=== PATIENT | male | born 1985 | race Caucasian/White ===

== ENCOUNTER 2023-06-09 10:11 | Outpatient (AMB) | payer OTHER, SELFPAY ==
--- NOTE | 2023-06-09 10:12 | A.OFFVIS_ITS ---
Intake Intake Visit Reasons: hemorrhoids Coding
--- NOTE | 2023-06-09 10:12 | MHC.OFFVIS ---
Intake Intake Visit Reasons: hemorrhoids Coding
--- NOTE | 2023-06-09 10:35 | A.OFFVIS_ITS ---
Intake Vital Signs 06/09/23 10:40 Weight 243 lb BP 137/72 Blood Pressure Location Rt brachial Position Sitting Pulse 59 Intake Visit Reasons: hemorrhoids Intake Note: This patient presents for an assessment for hemorrhoids. Patient c/o; reports rectal bleeding everyday, denies pain, reports straining with bowel movements, denies constipation. 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 He describes seeing blood per rectum with his bowel movements practically every day. He describes this as bright blood. He denies any pain in the anus. He denies any problems with constipation. He has noticed this for over a month now. He does admit to eating weight is every day. He says he does not know if he has any lump in the anus as he does not palpate the area. [facility] Medical History (Updated 06/09/23 @ 10:56 by Mark Burleson MD) Bleeding hemorrhoids Surgical History (Updated 06/09/23 @ 10:44 by TIMA Ocasio) History of nasal surgery Family History (Updated 06/09/23 @ 10:44 by TIMA Ocasio) Maternal Grandmother Colon cancer Review of Systems Const Denies chills and Denies fever(s) Card Denies chest pain, Denies dyspnea and Denies dyspnea on exertion Resp Denies cough, Denies dyspnea and Denies dyspnea on exertion GI Reports hematochezia and Denies change in bowel habits Denies hematuria and Denies difficulty urinating Musc Denies back pain and Denies limited range of motion Neuro Denies focal weakness and Denies convulsions Psych Denies depression and Denies mood swings Physical Exam Vital Signs: Last Vital Signs Pulse 59 06/09/23 10:40 BP 137/72 06/09/23 10:40 Const General: comfortable and no acute distress Orientation/consciousness: patient oriented x3 Neck Neck: Yes no lymphadenopathy Resp Auscultation: clear to auscultation bilaterally Cardio Rhythm: regular rhythm GI Other: Moderate size external hemorrhoidal column on the left Palpation (GI): Soft to palpation, nontender and no guarding Neuro General: patient oriented x3 Office Procedures Anoscopy He was in allyson-knife position. The anoscope was gently inserted. A full examination of the entire anal canal was done. He did have a large hemorrhoidal column the left side which is a mix of internal external. This seemed to bleed a little bit. There were no other lesions. No fissure or ulceration. There was no induration on digital exam. [id number] Assessment & Plan Assessment & Plan (1) Bleeding hemorrhoids: Code(s): K64.9 - Unspecified hemorrhoids Plan: He has this moderate-sized hemorrhoidal column on the left side, internal and external. He does state that he has bright blood per rectum movements pr actically every day. He is on wiping as well as on the toilet bowl. The stool itself is brown in color . He wants to proceed with hemorrhoidectomy. He lifts weights so he does not expect this hemorrhoid to get better. I explained the technique of exam under anesthesia and hemorrhoidectomy. I reviewed the risks including but not limited to bleeding and infections, as well as the benefits and alternatives. He has given consent. I also discussed with him what to expect with regards to care postoperatively. Coding Level of Care Code New Pt Level 3 (66853) Diagnoses Bleeding hemorrhoids K64.9 CPT Codes Details - CPT: 67375-[id number] ([id number])
[2023-06-09 10:40] VITALS: BP 137/72; PULSE 59
== END 2023-06-09 11:15 | disposition home or self-care (01) ==
PROVIDERS: Visit Provider Surgery
DX: K64.9 Unspecified hemorrhoids (principal)
CPT/HCPCS: 46600; 99203

== ENCOUNTER → 2023-06-09 10:11 | Outpatient (BNVA) | payer OTHER, SELFPAY | PROVIDERS: Visit Provider Surgery | DX: K64.9 Unspecified hemorrhoids (principal); Z80.0 Family history of malignant neoplasm of digestive organs | CPT/HCPCS: 46600 ==

== ENCOUNTER 2023-06-29 07:20 | Day surgery (SDC) | payer OTHER, SELFPAY ==
--- NOTE | 2023-06-28 09:38 | HO.ANESPROP2 ---
Documented by User: Chantell Ortiz NP 06/28/23 09:38 HPI - Anesthesia Eval Consult details Narrative: 38yo M for Hemorrhoidectomy [facility] Active Problems Active Problems: All Active Problems (Updated 06/25/23 @ 09:36 by Darcy Maldonado RN) Bleeding hemorrhoids (Acute) Past Medical History Medical History Hyperlipidemia Cervicalgia GERD (gastroesophageal reflux disease) Anxiety ADD (attention deficit disorder) PTSD (post-traumatic stress disorder) Bleeding hemorrhoids Family History Family History Maternal Grandmother Colon cancer Surgical History Surgical History H/O vasectomy History of nasal surgery Social History Social History Patient Tobacco Use Status: Never used Tobacco Use of substances other than those prescribed or required for medical reasons: No Are you DNR?: No Advance Directives: No Advance Directives Information Provided: Yes Meds Allergies Allergy/AdvReac Type Severity Reaction Status Date / Time No Known Allergies Allergy Verified 06/29/23 07:53 Home Medications Medication Instructions Recorded Confirmed Last Taken Type testosterone cypionate 06/29/23 06/29/23 Unknown History Exam Exam Date and Time: June 28, [id number] Height,Weight and Vital Signs: Weight 110.223 kg Assessment and Plan Assessment Anesthesia Assessment: Chart Reviewed Documented by User: Celine Kern MD 06/29/23 09:18 [facility] Active Problems Active Problems: All Active Problems (Updated 06/25/23 @ 09:36 by Darcy Maldonado RN) Bleeding hemorrhoids (Acute) ? H/o smoking- patient denies ? H/o cervicalgia - patient denies H/o GERD- No meds Snores but no documented ADELFO Sore throat for days after nasal surgery 2011 Past Medical History Medical History Hyperlipidemia Cervicalgia GERD (gastroesophageal reflux disease) Anxiety ADD (attention deficit disorder) PTSD (post-traumatic stress disorder) Bleeding hemorrhoids Family History Family History Maternal Grandmother Colon cancer Family history of problems with anesthesia: No Surgical History Surgical History H/O vasectomy History of nasal surgery History of Problems with Anesthesia: Yes (Sore throat for days following intubation for nasal surgery 2011) Social History Social History Patient Tobacco Use Status: Never used Tobacco Use of substances other than those prescribed or required for medical reasons: No Are you DNR?: No Advance Directives: No Advance Directives Information Provided: Yes Meds Allergies Allergy/AdvReac Type Severity Reaction Status Date / Time No Known Allergies Allergy Verified 06/29/23 07:53 Home Medications Medication Instructions Recorded Confirmed Last Taken Type testosterone cypionate 06/29/23 06/29/23 Unknown History Exam Height,Weight and Vital Signs: Height 6 ft 2 in Weight 111.13 kg Vital Signs Temp Pulse Resp BP Pulse Ox O2 Del Method 06/29/23 07:54 97.9 F 57 16 127/62 97 Room Air Pertinent Lab Results Pertinent Lab Results: 05/07/23 Hgb 16.6 Hct 50.4 WBC 5.51 Plt 267 Na 137 K 4.9 CO2 28 Airway Mallampati Class: II TM Dist: >3cm Neck ROM: Full Loose/Missing/Broken Teeth: No (Denies broken, loose, missing teeth) Heart: RRR Lungs: CTAB Assessment and Plan Assessment Anesthesia Assessment: Anesthesia Plan Discussed Final Anesthetic Review Family History of Problems with Anesthesia: No History of Problems with Anesthesia: Yes (Sore throat for days following intubation for nasal surgery 2011) NPO: Yes ASA Class: II Final Preanesthetic Review: No Changes in Pt Med Stat, Meds/Allgs Chart Reviewed, Consent Obtained/Reviewed and Anes Risks/Benef Reviewed Patient Risk: Low Procedure Risk: Low Assessment/Block/Sedation in SS: Assess/Block/Sedation-SS Anesthetic Plan Anesthetic Plan: GA Disposition: Standard PACU
[2023-06-29] VITALS (7 sets, daily range): BP systolic 106–137; BP diastolic 40–73; PULSE 53–68; RESP 16–18; TEMP 36.4–36.6; O2SAT 93–98; BMI 31.5
[2023-06-29] MEDS: Lactated Ringers 1,000 ML 100 ML IVCONT (08:14)
--- NOTE | 2023-06-29 09:01 | MHC.SHP ---
Pre-Procedural Eval Section A Date of Service: 06/29/23 The patient is an INPATIENT: No Changes since office visit: No Cold of Flu in the past 2 weeks, No New Medical Problems, No Changes in Medication and No Patient answered all questions The History & Physical has been completed within 30 days and I have reviewed it.: Yes Section B Chief Complaint: Unspecified hemorrhoids Allergies: Allergies Allergy/AdvReac Type Severity Reaction Status Date / Time No Known Allergies Allergy Verified 06/29/23 07:53 Plan I have reviewed the history and physical and performed a pertinent physical examination on my patient. No changes have occurred unless specified. Time Spent With Patient Time: Total time managing care of this patient today ____ minutes.
--- NOTE | 2023-06-29 10:17 | W.PM.OPN ---
Operative Note Operative Note Date of Service: 06/29/23 Narrative: Preop diagnosis: Bleeding hemorrhoids Postop diagnosis: Bleeding hemorrhoids, internal external Procedure: Exam under anesthesia, had ectomy x2 columns Surgeon: Mark Burleson MD The patient is a 38-year-old male who has had problems with bleeding per rectum. He was noted to have bulky internal and external hemorrhoids. He wanted to proceed with hemorrhoidectomy. He understood the technique of the procedure as well as the risks, benefits, and alternatives were He was brought to the operating room. Was placed in prone allyson-knife position under general anesthesia via endotracheal tube. The buttocks were retracted with wide tape laterally. The perianal area was prepped and draped in the usual sterile fashion. A surgical time-out was done. The patient received Cefotan 2 g IV preoperatively Examination of the anal orifice revealed a large external hemorrhoidal column on the left and a smaller 1 on the right. I inserted the Delia Duque retractor and examined the anal canal circumferentially. Again this will columns were seen and were noted to be a mix of both internal external . There were no other lesions seen. I made a figure of 8 stitch at the pedicle of the hemorrhoidal column the left past the dentate line. Was done using chromic 3-0 stitch. I made an incision around this hemorrhoidal column to the perianal skin using blade 15. I excised this hemorrhoidal column above the plane of sphincters along this incision using Metzenbaum scissors. I closed this incision with a running chromic 3-0 stitch . The same procedure was duplicated that the hemorrhoid column on the right. Again I made a [id number] stitch at the pedicle and made an incision around this column to the perianal skin. I excised this hemorrhoidal column along this incision above the plane of sphincters using Metzenbaum scissors. I closed this incision with a running chromic 3-0 stitch Hemostasis was confirmed. I infiltrated the perianal area with Marcaine 0.5% for postop analgesia. The procedure was completed . The patient tolerated procedure well. There were no immediate complications. Initial and final counts of sponges and instruments were correct. Estimated blood loss about 5 cc. The patient was extubated without difficulty and transferred to the recovery room with stable vital signs.
== END 2023-06-29 11:55 | disposition home or self-care (01) ==
PROVIDERS: Visit Provider Surgery
PROC: (CPT 46260; principal; 2023-06-29 09:30)
DX: K64.8 Other hemorrhoids (principal); K64.4 Residual hemorrhoidal skin tags; K21.9 Gastro-esophageal reflux disease without esophagitis; E78.5 Hyperlipidemia, unspecified; Z98.890 Other specified postprocedural states
CPT/HCPCS: 46260; 88304; J0131; J0330; J1100; J1885; J2405; J3010

== ENCOUNTER → 2023-06-29 07:20 | Outpatient (BNV) | payer OTHER, SELFPAY | PROVIDERS: Visit Provider Surgery | DX: K64.8 Other hemorrhoids (principal) | CPT/HCPCS: 46260 ==

== ENCOUNTER 2023-07-12 08:50 | Outpatient (AMB) | payer OTHER, SELFPAY ==
--- NOTE | 2023-07-12 09:03 | A.OFFVIS_ITS ---
Intake Intake Visit Reasons: S/P hemorrhoidectomy Intake Note: This patient presents for a post-op assessment status post hemorrhoidectomy. Patient c/o; reports will like to discuss concerns with provider. Senior Agricultural Assistant Required: No Accompanied by: Self / Same As Patient Allergies No Known Allergies Allergy (Verified 07/12/23 09:07) HPI S/P hemorrhoidectomy HPI Details He underwent hemorrhoidectomy for symptomatic hemorrhoids last 06/29/2023. He tolerated procedure well. He says that he did have significant pain for the 1st few days but he feels much better now. [facility] Medical History Hyperlipidemia Cervicalgia GERD (gastroesophageal reflux disease) Anxiety ADD (attention deficit disorder) PTSD (post-traumatic stress disorder) Bleeding hemorrhoids Surgical History History of hemorrhoidectomy (~06/29/23) H/O vasectomy History of nasal surgery Family History Maternal Grandmother Colon cancer Social History Patient Tobacco Use Status: Never used Tobacco Review of Systems Const Denies chills and Denies fever(s) Card Denies chest pain, Denies dyspnea and Denies dyspnea on exertion Resp Denies cough, Denies dyspnea and Denies dyspnea on exertion GI Denies hematochezia and Denies change in bowel habits Denies hematuria and Denies difficulty urinating Musc Denies back pain and Denies limited range of motion Neuro Denies focal weakness and Denies convulsions Psych Denies depression and Denies mood swings Physical Exam Const General: comfortable and no acute distress Resp Effort & Inspection: normal respiratory effort GI Other: Rectal exam shows the hemorrhoidectomy sites to be healing well, and no evidence of infection Assessment & Plan Assessment & Plan (1) Bleeding hemorrhoids: Code(s): K64.9 - Unspecified hemorrhoids Plan: Status post hemorrhoidectomy. He is doing very well postoperatively. His symptoms improved significantly and he is happy with the outcome. He can follow up on a p.r.n. basis. He was advised to avoid straining and constipation. Coding Level of Care Code Global (38643) Diagnoses Bleeding hemorrhoids K64.9
== END 2023-07-12 09:46 | disposition home or self-care (01) ==
PROVIDERS: Visit Provider Surgery
DX: K64.9 Unspecified hemorrhoids (principal)
CPT/HCPCS: 99024

== ENCOUNTER → 2023-07-12 08:50 | Outpatient (BNVA) | payer OTHER, SELFPAY | PROVIDERS: Visit Provider Surgery ==

== ENCOUNTER 2023-10-14 09:32 | Outpatient (AMB) | payer OTHER, SELFPAY ==
--- NOTE | 2023-10-14 09:48 | MHC.OFFVIS ---
Intake Vital Signs 10/14/23 09:53 Weight 236 lb BP 131/61 Blood Pressure Location Rt brachial Position Sitting Pulse 87 Intake Visit Reasons: Bleeding hemorrhoids Intake Note: This patient presents for an assessment for rectal bleeding. Patient c/o; reports rectal bleeding. Gas Producer Required: No Accompanied by: Self / Same As Patient Allergies No Known Allergies Allergy (Verified 10/14/23 09:54) Medication List - Last Reconciled 10/14/23 by Mark Burleson MD docusate sodium (Colace) 100 mg PO BID ibuprofen 600 mg PO Q6H PRN oxycodone-acetaminophen 5-325 mg (Percocet) 1 tab PO Q4-6H PRN [testosterone cypionate ] HPI Bleeding hemorrhoids HPI Details 38-year-old male here for passage of bright blood per rectum. He had undergone hemorrhoidectomy for bleeding hemorrhoids last June,. I would removed 2 hemorrhoidal columns at that time He says he continues to have some passage of bright blood per rectum. Occasionally this becomes heavy. He denies any pain. COUNTS INCLUDE 234 BEDS AT THE [facility] Medical History (Updated 10/14/23 @ 10:09 by Mark Burleson MD) Rectal bleeding Hyperlipidemia Cervicalgia GERD (gastroesophageal reflux disease) Anxiety ADD (attention deficit disorder) PTSD (post-traumatic stress disorder) Bleeding hemorrhoids Surgical History History of hemorrhoidectomy (~06/29/23) H/O vasectomy History of nasal surgery Family History Maternal Grandmother Colon cancer Social History Patient Tobacco Use Status: Never used Tobacco Review of Systems Const Denies chills and Denies fever(s) Card Denies chest pain, Denies dyspnea and Denies dyspnea on exertion Resp Denies cough, Denies dyspnea and Denies dyspnea on exertion GI Reports hematochezia and Denies change in bowel habits Denies hematuria and Denies difficulty urinating Musc Denies back pain and Denies limited range of motion Neuro Denies focal weakness and Denies convulsions Psych Denies depression and Denies mood swings Physical Exam Vital Signs: Last Vital Signs Pulse 87 10/14/23 09:53 BP 131/61 10/14/23 09:53 Const General: comfortable and no acute distress Orientation/consciousness: patient oriented x3 Neck Neck: Yes no lymphadenopathy Resp Auscultation: clear to auscultation bilaterally Cardio Rhythm: regular rhythm GI Other: Rectal exam shows external hemorrhoids on both the left and right side Palpation (GI): Soft to palpation, nontender and no guarding Neuro General: patient oriented x3 Office Procedures Anoscopy He was in allyson-knife position. The anoscope was gently inserted. A full examination of the anal canal was done. Did have residual mixed internal external hemorrhoidal columns on both the left and right side. There was no bleeding. There were no other lesion lesions, or fissure or induration.. [id number] Assessment & Plan Assessment & Plan (1) Rectal bleeding: Code(s): K62.5 - Hemorrhage of anus and rectum Plan: He continues to have passage of bright blood per rectum. He already had hemorrhoidectomy last year although does have significant residual hemorrhoidal columns. His bleeding is likely from an outlet source with this residual hemorrhoids. However, I am going to do a colonoscopy to rule out any other proximal source I explained to the technique of colonoscopy to him. I reviewed the risks including but not limited to bleeding and perforation, as well as the benefits and alternatives. He understands and wants to proceed. Coding Level of Care Code Est Pt Level 3 (32235) Diagnoses Rectal bleeding K62.5 CPT Codes Details - CPT: [id number] ([id number])
[2023-10-14 09:53] VITALS: BP 131/61; PULSE 87
== END 2023-10-14 10:12 | disposition home or self-care (01) ==
PROVIDERS: Visit Provider Surgery
DX: K62.5 Hemorrhage of anus and rectum (principal); K64.8 Other hemorrhoids
CPT/HCPCS: 46600; 99213

== ENCOUNTER → 2023-10-14 09:32 | Outpatient (BNVA) | payer OTHER, SELFPAY | PROVIDERS: Visit Provider Surgery | DX: K62.5 Hemorrhage of anus and rectum (principal); K64.4 Residual hemorrhoidal skin tags; K64.8 Other hemorrhoids | CPT/HCPCS: 46600; 99212 ==

== ENCOUNTER 2023-10-29 07:28 | Day surgery (SDC) | payer OTHER, SELFPAY ==
[2023-10-26 16:17] VITALS: BMI 30.3
--- NOTE | 2023-10-28 10:49 | HO.ANESPROP2 ---
Documented by User: Chantell Ortiz NP 10/28/23 10:49 HPI - Anesthesia Eval Consult details Narrative: 38yo M for Colonoscopy with Possible Polypectomy PMF Active Problems Active Problems: All Active Problems (Updated 10/14/23 @ 10:09 by Mark Burleson MD) Rectal bleeding (Acute) Bleeding hemorrhoids (Acute) Past Medical History Medical History (Updated 10/14/23 @ 10:09 by Mark Burleson MD) Rectal bleeding Hyperlipidemia Cervicalgia GERD (gastroesophageal reflux disease) Anxiety ADD (attention deficit disorder) PTSD (post-traumatic stress disorder) Bleeding hemorrhoids Family History Family History Maternal Grandmother Colon cancer Family history of problems with anesthesia: No Surgical History Surgical History History of hemorrhoidectomy (~06/29/23) H/O vasectomy History of nasal surgery History of Problems with Anesthesia: Yes (Sore throat for days following intubation for nasal surgery 2011) Social History Social History Patient Tobacco Use Status: Never used Tobacco Use of substances other than those prescribed or required for medical reasons: No Are you DNR?: No Advance Directives: No Advance Directives Information Provided: Yes Meds Allergies Allergy/AdvReac Type Severity Reaction Status Date / Time No Known Allergies Allergy Verified 10/14/23 09:54 Home Medications Medication Instructions Recorded Confirmed Last Taken Type testosterone cypionate 06/29/23 10/14/23 Unknown History Exam Height,Weight and Vital Signs: Height 6 ft 2 in Weight 107.048 kg Assessment and Plan Assessment Anesthesia Assessment: Chart Reviewed Final Anesthetic Review Family History of Problems with Anesthesia: No History of Problems with Anesthesia: Yes (Sore throat for days following intubation for nasal surgery 2011) Documented by User: Yoel Busch MD 10/29/23 08:39 [facility] Past Medical History Medical History (Updated 10/14/23 @ 10:09 by Mark Burleson MD) Rectal bleeding Hyperlipidemia Cervicalgia GERD (gastroesophageal reflux disease) Anxiety ADD (attention deficit disorder) PTSD (post-traumatic stress disorder) Bleeding hemorrhoids Family History Family History Maternal Grandmother Colon cancer Surgical History Surgical History History of hemorrhoidectomy (~06/29/23) H/O vasectomy History of nasal surgery Social History Social History Patient Tobacco Use Status: Never used Tobacco Use of substances other than those prescribed or required for medical reasons: No Are you DNR?: No Advance Directives: No Advance Directives Information Provided: Yes Meds Allergies Allergy/AdvReac Type Severity Reaction Status Date / Time No Known Allergies Allergy Verified 10/14/23 09:54 Home Medications Medication Instructions Recorded Confirmed Last Taken Type testosterone cypionate 06/29/23 10/14/23 Unknown History Exam Airway Mallampati Class: I TM Dist: >3cm Neck ROM: Full Loose/Missing/Broken Teeth: No Heart: ok Lungs: ok Assessment and Plan Assessment Anesthesia Assessment: Anesthesia Plan Discussed Final Anesthetic Review NPO: Yes ASA Class: II Final Preanesthetic Review: No Changes in Pt Med Stat, Meds/Allgs Chart Reviewed, Consent Obtained/Reviewed and Anes Risks/Benef Reviewed Patient Risk: Low Procedure Risk: Low Anesthetic Plan Anesthetic Plan: MAC: and Agree w/ Assess. and Plan Disposition: Standard PACU
[2023-10-29 08:15] VITALS: BMI 30.2
[2023-10-29 08:25] VITALS: BP 124/63; PULSE 63; RESP 16; TEMP 36.2; O2SAT 95
--- NOTE | 2023-10-29 08:33 | MHC.SHP ---
Pre-Procedural Eval Section A - 24 Hr Update-Section A only Date of Service: 10/29/23 The patient is an INPATIENT: No Changes since office visit: No Cold of Flu in the past 2 weeks, No New Medical Problems, No Changes in Medication and No Patient answered all questions The patient has been examined within 24 hours of the surgical procedure. The History & Physical has been completed within 30 days and I have reviewed it.: Yes Section B - Complete if H&P > 30 days Chief Complaint: Hemorrhage of anus and rectum Allergies: Allergies Allergy/AdvReac Type Severity Reaction Status Date / Time No Known Allergies Allergy Verified 10/14/23 09:54 Plan I have reviewed the history and physical and performed a pertinent physical examination on my patient. No changes have occurred unless specified. Time Spent With Patient Time: Total time managing care of this patient today ____ minutes.
[2023-10-29] MEDS: Lactated Ringers 1,000 ML 100 ML IVCONT (08:35)
--- NOTE | 2023-10-29 09:35 | W.PM.OPN ---
Operative Note Operative Note Date of Service: 10/29/23 Narrative: Preop Diagnosis: Rectal bleeding Postop diagnosis: Rectal lesion, occupying about half of the circumference friable, at the rectal shelf Occasional sigmoid diverticulosis Procedure: Colonoscopy, biopsy of rectal lesion using cold forceps Surgeon: Mark Burleson MD The patient is a 38-year-old male who had previously undergone hemorrhoidectomy last June, because of bleeding however, he stated that he continue have to have passage of bright blood per rectum. I therefore scheduled him for colonoscopy to rule out a more proximal source. He understood the technique of this procedure as well as the risks, benefits, and alternatives. The patient was brought to the operating room and placed in left lateral decubitus position under monitored anesthesia care. A surgical time-out was done. A full digital rectal exam was done and this did not reveal any significant anal lesions. The tip of the Olympus colonoscope was gently introduced through the anal orifice advanced with insufflation all the way to the cecum. Advancement of the scope was challenging in view of multiple pools of thin her stool throughout the colon. The cecum was intubated. The cecum was identified by visualization of the ileocecal valve as well as the appendiceal orifice. The cecal mucosa was unremarkable. The scope was gradually withdrawn with careful examination of the entire colonic mucosa being done with scope withdrawal. Again, the patient did have multiple segments with thin watery stools so I would to do a lot of irrigation and suctioning to achieve visualization. It was unlikely that any lesion may have been missed. There was note of occasional diverticula in the sigmoid. In the rectal shelf was note of a large friable mass, occupying almost 1/2 of the circumference. Multiple biopsies done using the cold forceps . The lesion was probably about 6-7 cm from the anal verge There were no other lesions in the anal canal. The scope was then withdrawn completely with desufflation The patient tolerated procedure well. There were no immediate complications. We will await for the path report. I will see him in the office to discuss this as well as the next step in his care.
[2023-10-29 09:44] VITALS: BP 107/58; PULSE 76; RESP 18; TEMP 36.1; O2SAT 94
[2023-10-29 09:59] VITALS: BP 116/91; PULSE 72; RESP 18; TEMP 36.2; O2SAT 98
== END 2023-10-29 10:35 | disposition home or self-care (01) ==
PROVIDERS: PCP Nurse Practitioner Family; Visit Provider Surgery
PROC: 0DBE8ZZ Excision of Large Intestine, Via Natural or Artificial Opening Endoscopic (ICD-10-PCS; CPT 45380; principal; 2023-10-29 09:00)
DX: C20 Malignant neoplasm of rectum (principal); K62.9 Disease of anus and rectum, unspecified; K57.30 Diverticulosis of large intestine without perforation or abscess without bleeding; K64.8 Other hemorrhoids; F41.9 Anxiety disorder, unspecified; Z98.890 Other specified postprocedural states; E78.5 Hyperlipidemia, unspecified; K21.9 Gastro-esophageal reflux disease without esophagitis; Z79.1 Long term (current) use of non-steroidal anti-inflammatories (NSAID); Z79.899 Other long term (current) drug therapy; Z98.52 Vasectomy status
CPT/HCPCS: 45380; 88305; 88341; 88342; J2704; J3010

== ENCOUNTER → 2023-10-29 07:28 | Outpatient (BNV) | payer OTHER, SELFPAY | PROVIDERS: PCP Nurse Practitioner Family; Visit Provider Surgery | DX: K62.5 Hemorrhage of anus and rectum (principal) | CPT/HCPCS: 45380 ==

== ENCOUNTER 2023-11-08 15:24 | Outpatient (AMB) | payer OTHER, SELFPAY ==
--- NOTE | 2023-11-08 15:36 | A.OFFVIS_ITS ---
Intake Vital Signs 11/08/23 15:42 Height 6 ft 2 in Weight 233 lb BMI 29.9 BP 132/71 Blood Pressure Location Rt brachial Position Sitting Pulse 75 Intake Visit Reasons: s/p colonoscopy Intake Note: This patient presents for a follow-up assessment status post colonoscopy. Patient c/o; reports rectal bleeding. 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 Accompanied by: Spouse Allergies No Known Allergies Allergy (Verified 11/08/23 15:43) Medication List - Last Reconciled 11/08/23 by Mark Burleson MD docusate sodium (Colace) 100 mg PO BID ibuprofen 600 mg PO Q6H PRN oxycodone-acetaminophen 5-325 mg (Percocet) 1 tab PO Q4-6H PRN sodium,potassium,mag sulfates 17.5-3.13-1.6 gram (Suprep Bowel Prep Kit) DILUTE; drink full amount early evening before AND next morning at least 2 hr before procedure; follow w 960 mL water PO [testosterone cypionate ] HPI s/p colonoscopy HPI Details 38-year-old male here for a follow-up fo r passage of bright blood per rectum. He had undergone hemorrhoidectomy for bleeding hemorrhoids last June,. I had removed 2 hemorrhoidal columns at that time. However, he continued to have some passage of blood blood per rectum even after the h emorrhoidectomy site and healed. He denies any pain with bowel movements. I therefore scheduled him for a colonoscopy last October 30, 2023. He is here to discuss the findings. The only significant history is has in the family is that his grandmother had colon cancer at an undisclosed age. [facility] Medical History Rectal adenocarcinoma Rectal bleeding Hyperlipidemia Cervicalgia GERD (gastroesophageal reflux disease) Anxiety ADD (attention deficit disorder) PTSD (post-traumatic stress disorder) Bleeding hemorrhoids Surgical History History of hemorrhoidectomy (~06/29/23) H/O vasectomy History of nasal surgery Family History Maternal Grandmother Colon cancer Social History Patient Tobacco Use Status: Never used Tobacco Review of Systems Const Denies chills and Denies fever(s) Card Denies chest pain, Denies dyspnea and Denies dyspnea on exertion Resp Denies cough, Denies dyspnea and Denies dyspnea on exertion GI Reports hematochezia and Denies change in bowel habits Denies hematuria and Denies difficulty urinating Musc Denies back pain and Denies limited range of motion Neuro Denies focal weakness and Denies convulsions Psych Denies depression and Denies mood swings Physical Exam Vital Signs: Last Vital Signs Pulse 75 11/08/23 15:42 BP 132/71 11/08/23 15:42 BMI result Body Mass Index 29.9 Const General: comfortable and no acute distress Orientation/consciousness: patient oriented x3 Neck Neck: Yes no lymphadenopathy Resp Auscultation: clear to auscultation bilaterally Cardio Rhythm: regular rhythm GI Palpation (GI): Soft to palpation, nontender and no guarding Neuro General: patient oriented x3 Assessment & Plan Assessment & Plan (1) Rectal adenocarcinoma: Code(s): C20 - Malignant neoplasm of rectum Plan: He had a colonoscopy done last October 30 and this showed a good sized rectal lesion very close to the anal shelf. Biopsies had shown findings consistent with a rectal adenocarcinoma. I explained the above to him. I am going to order for a CAT scan to rule out any other external rectal disease, as well as an MRI to check the extent of local invasion in the rectal wall. He has good sized tumor so he will likely benefit from neoadjuvant treatment especially for a sphincter saving procedure down the line. I am going to refer him to the oncologist as well. Since he is interested in sphincter saving procedure, I may have to also send him to the [facility] colorectal service after I have reviewed his MRI and CT scan. He is scheduled to have draws for CEA level as well as BUN creatinine tomorrow. He understands the plan well. His was with him during the visit. Orders: Referrals Hematology & Oncology Referral C20 - Malignant neoplasm of rectum Coding Level of Care Code Est Pt Level 4 (20052) Diagnoses Rectal adenocarcinoma C20
[2023-11-08 15:42] VITALS: BP 132/71; PULSE 75; BMI 29.9
== END 2023-11-08 16:13 | disposition home or self-care (01) ==
PROVIDERS: PCP Nurse Practitioner Family; Referring Provider Surgery; Visit Provider Surgery
DX: C20 Malignant neoplasm of rectum (principal)
CPT/HCPCS: 99214

== ENCOUNTER → 2023-11-08 15:24 | Outpatient (BNVA) | payer OTHER, SELFPAY | PROVIDERS: PCP Nurse Practitioner Family; Visit Provider Surgery | DX: C20 Malignant neoplasm of rectum (principal) | CPT/HCPCS: 99212 ==

== ENCOUNTER 2023-11-09 07:13 | Outpatient (REF) | payer OTHER, SELFPAY ==
[2023-11-09 08:16] LABS: Blood Urea Nitrogen 15 mg/dL (9-16); Estimated Glomerular Filt Rate > 60
[2023-11-09 09:12] LABS: Carcinoembryonic Antigen < 1.73 ng/mL
== END 2023-11-09 07:14 | disposition home or self-care (01) ==
LOC: HO.LAB 07:13
PROVIDERS: Visit Provider Surgery
DX: C20 Malignant neoplasm of rectum (principal)
CPT/HCPCS: 36415; 82378; 82565; 84520

== ENCOUNTER 2023-11-10 14:57 | Outpatient (REF) | payer OTHER, SELFPAY ==
--- NOTE | ~2023-11-10 | CT_ITS ---
EXAMINATION: CT ABDOMEN AND PELVIS WITH CONTRAST CLINICAL INFORMATION: Malignant neoplasm of rectum. COMPARISON: None available. TECHNIQUE: Multidetector volumetric images were obtained from the superior aspect of the liver through the pubic symphysis following administration 85 mL of Omnipaque 350 intravenous contrast. Sagittal and coronal reformatted images were obtained on the technologist's workstation. Oral contrast: No This CT examination was performed using dose optimization techniques as appropriate, variously including the following: *Automated exposure control *Adjustment of mA and/or kV according to patient size (this includes techniques or standardized protocols for targeted exams where dose is matched to indication/reason for exam; i.e. extremities or head) *Use of iterative reconstruction technique DLP: 499 mGy-cm FINDINGS: LUNG BASES: The visualized lung bases are unremarkable. LIVER, GALLBLADDER, AND BILIARY TREE: The liver is normal in size, shape, and attenuation. No focal hepatic lesion or biliary ductal dilatation is present. The gallbladder is unremarkable with no evidence of radiopaque gallstones, gallbladder wall thickening, or obvious pericholecystic inflammatory changes. PANCREAS: Unremarkable. SPLEEN: Unremarkable. ADRENAL GLANDS: Unremarkable. KIDNEYS AND URETERS: The kidneys are normal in size, shape, and attenuation. No hydronephrosis, hydroureter, or calculi seen. No perinephric stranding. BLADDER: Unremarkable. GASTROINTESTINAL TRACT: There is marked leftward rectal wall thickening, without venkat obstruction noted (3:71 and 6:77). There are a few left perirectal lymph nodes, the largest showing a short axis diameter of 3 mm (3:72). No free intraperitoneal air or abscess is seen. The vermiform appendix appears normal. ABDOMINAL WALL: There is a small fat-containing umbilical hernia. There are small fat-containing bilateral inguinal hernias. LYMPH NODES: Small left perirectal lymph nodes are noted, as detailed. No sizable abdominopelvic lymphadenopathy is seen. VASCULAR: Unremarkable. PELVIC VISCERA: Unremarkable. Bilateral vasectomy clips are noted. OSSEOUS STRUCTURES: Unremarkable. CT/CT abdomen pelvis w IV con IMPRESSION: Corresponding with the provided history of rectal carcinoma, there is leftward rectal wall thickening. There are adjacent nonpathologically enlarged left perirectal lymph nodes. No sizable abdominopelvic lymphadenopathy is seen. There is no ascites. No abdominopelvic metastasis is noted. Fleischner guidelines were followed.
[2023-11-10] MEDS: iohexoL 350 MG/ML 100 ML INFUS..BTL IV (16:12)
== END 2023-11-10 14:58 | disposition home or self-care (01) ==
LOC: HO.CT 14:57
PROVIDERS: PCP Nurse Practitioner Family; Visit Provider Surgery
DX: C20 Malignant neoplasm of rectum (principal)
CPT/HCPCS: 74177; Q9967

== ENCOUNTER 2023-11-18 14:56 | Outpatient (AMB) | payer OTHER, SELFPAY ==
--- NOTE | 2023-11-18 15:05 | MHC.OFFVIS ---
Intake Vital Signs 11/18/23 15:09 Height 6 ft 2 in Weight 237 lb BMI 30.4 BP 129/69 Blood Pressure Location Rt brachial Position Sitting Pulse 77 Intake Visit Reasons: Rectal adenocarcinoma, follow up Intake Note: This patient presents for a follow-up assessment for MRI results for rectal adenocarcinoma. Pt c/o; reports no changes. 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 Denies any new complaints. He occasionally sees small amounts of blood with bowel movements. He denies rectal pain. He has been seen by Dr. Reagan of Oncology. He says he feels well overall and is in good spirits. [facility] Medical History Rectal adenocarcinoma Rectal bleeding Hyperlipidemia Cervicalgia GERD (gastroesophageal reflux disease) Anxiety ADD (attention deficit disorder) PTSD (post-traumatic stress disorder) Bleeding hemorrhoids Surgical History History of hemorrhoidectomy (~06/29/23) H/O vasectomy History of nasal surgery Family History Maternal Grandmother Colon cancer Social History Household Members: Spouse Patient Tobacco Use Status: Never used Tobacco Use of substances other than those prescribed or required for medical reasons: No Have you been hit, kicked, punched, or otherwise hurt by someone within the past year? If so, by whom?: No Do you feel safe in your current relationship?: Yes Do you have thoughts of harming others: None Do you have a plan to hurt others: No Plan service: Yes Current occupational status: employed and disabled Review of Systems Const Denies chills and Denies fever(s) Card Denies chest pain, Denies dyspnea and Denies dyspnea on exertion Resp Denies cough, Denies dyspnea and Denies dyspnea on exertion GI Reports hematochezia and Denies change in bowel habits Denies hematuria and Denies difficulty urinating Musc Denies back pain and Denies limited range of motion Neuro Denies focal weakness and Denies convulsions Psych Denies depression and Denies mood swings Physical Exam Vital Signs: Last Vital Signs Pulse 77 11/18/23 15:09 BP 129/69 11/18/23 15:09 BMI result Body Mass Index 30.4 Const General: comfortable and no acute distress Orientation/consciousness: patient oriented x3 Neck Neck: Yes no lymphadenopathy Resp Auscultation: clear to auscultation bilaterally Cardio Rhythm: regular rhythm GI Palpation (GI): Soft to palpation, nontender and no guarding Neuro General: patient oriented x3 Assessment & Plan Assessment & Plan (1) Rectal adenocarcinoma: Code(s): C20 - Malignant neoplasm of rectum Plan: I have reviewed his MRI and CT scan. His imaging studies do not suggest liver lesions. His MRI does reveal cancer to be about 5 cm in length with nodular extension of the lesion into the left me so rectal fat. There are several nodular implants within the mesorectal fat suggestive of tumor deposits. Findings are suggestive of a T3 N2 disease He has been seen by Dr. Reagan. He is being arranged to undergo neoadjuvant chemotherapy and radiation He understands the plan well. I will see him again in the office in about a month to see how is doing and to make sure that he is being navigated with regards to treatment. Coding Level of Care Code Est Pt Level 4 (42172) Diagnoses Rectal adenocarcinoma C20
[2023-11-18 15:09] VITALS: BP 129/69; PULSE 77; BMI 30.4
== END 2023-11-18 15:18 | disposition home or self-care (01) ==
PROVIDERS: PCP Nurse Practitioner Family; Referring Provider Nurse Practitioner Family; Visit Provider Surgery
DX: C20 Malignant neoplasm of rectum (principal)
CPT/HCPCS: 99214

== ENCOUNTER → 2023-11-18 14:56 | Outpatient (BNVA) | payer OTHER, SELFPAY | PROVIDERS: PCP Nurse Practitioner Family; Visit Provider Surgery | DX: C20 Malignant neoplasm of rectum (principal) | CPT/HCPCS: 99212 ==

== ENCOUNTER → 2023-11-22 16:00 | Outpatient (BNV) | payer OTHER, SELFPAY | PROVIDERS: Referring Provider Surgery; Visit Provider Internal Medicine Medical Oncology | DX: C20 Malignant neoplasm of rectum (principal) | CPT/HCPCS: 99204; 99213 ==

== ENCOUNTER 2023-12-22 14:20 | Outpatient (AMB) | payer OTHER, SELFPAY ==
--- NOTE | 2023-12-22 14:25 | A.OFFVIS_ITS ---
Vital Signs 12/22/23 14:31 Height 6 ft 2 in Weight 236 lb BMI 30.3 BP 125/58 L Blood Pressure Location Rt brachial Position Sitting Pulse 57 Intake Visit Reasons: 1 month follow-up rectal adenocarcinoma Intake Note: This patient presents for a one month follow-up rectal adenocarcinoma. Pt c/o; reports no complaints. 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 He had started radiation treatment and has finished about 2 weeks of this. He is doing this in [employer] [place] He also has been on Xeloda for the past month. He has been tolerating this so far. He says that he is passage of blood per rectum has decreased significantly. He has good oral intake. [facility] Medical History Rectal adenocarcinoma Rectal bleeding Hyperlipidemia Cervicalgia GERD (gastroesophageal reflux disease) Anxiety ADD (attention deficit disorder) PTSD (post-traumatic stress disorder) Bleeding hemorrhoids Surgical History History of hemorrhoidectomy (~06/29/23) H/O vasectomy History of nasal surgery Family History Maternal Grandmother Colon cancer Social History Household Members: Spouse Patient Tobacco Use Status: Never used Tobacco service: Yes Current occupational status: employed and disabled Review of Systems Const Denies chills and Denies fever(s) Card Denies chest pain, Denies dyspnea and Denies dyspnea on exertion Resp Denies cough, Denies dyspnea and Denies dyspnea on exertion GI Denies hematochezia and Denies change in bowel habits Denies hematuria and Denies difficulty urinating Musc Denies back pain and Denies limited range of motion Neuro Denies focal weakness and Denies convulsions Psych Denies depression and Denies mood swings Physical Exam Vital Signs: Last Vital Signs Pulse 57 12/22/23 14:31 BP 125/58 L 12/22/23 14:31 BMI result Body Mass Index 30.3 Const General: comfortable and no acute distress Resp Effort & Inspection: normal respiratory effort GI Palpation (GI): Soft to palpation and not firm Assessment & Plan Assessment & Plan (1) Rectal adenocarcinoma: Code(s): C20 - Malignant neoplasm of rectum Category: Medical Plan: He is currently undergoing neoadjuvant treatment with chemotherapy and radiation. He is tolerating this well. He says he feels well overall. He eventually will need radical resection down the line to complete treatment. He says that he actually wants to go to [facility] for this and is requesting to be referred to them.. I will arrange for him to be seen by the Colorectal Service at the [facility] for sphincter saving procedure. He is overall doing well. I will see him in the office in about a month. Coding Level of Care Code Est Pt Level 3 (90859) Diagnoses Rectal adenocarcinoma C20
[2023-12-22 14:31] VITALS: BP 125/58; PULSE 57; BMI 30.3
== END 2023-12-22 14:55 | disposition home or self-care (01) ==
PROVIDERS: Referring Provider Internal Medicine Endocrinology, Diabetes & Metabolism; Visit Provider Surgery
DX: C20 Malignant neoplasm of rectum (principal)
CPT/HCPCS: 99213

== ENCOUNTER → 2023-12-22 14:20 | Outpatient (BNVA) | payer OTHER, SELFPAY | PROVIDERS: Visit Provider Surgery | DX: C20 Malignant neoplasm of rectum (principal) | CPT/HCPCS: 99212 ==

== ENCOUNTER 2024-01-20 08:27 | Outpatient (AMB) | payer OTHER, SELFPAY ==
--- NOTE | 2024-01-20 08:39 | A.OFFVIS_ITS ---
Vital Signs 01/20/24 08:45 Height 6 ft 2 in Weight 229 lb BMI 29.4 BP 126/90 H Blood Pressure Location Rt brachial Position Sitting Pulse 76 Intake Visit Reasons: s/p rectal adenocarcinoma Intake Note: This patient presents for an assessment for rectal adenocarcinoma. Pt c/o; reports no complaints. 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 He denies any new complaints. As a matter fact, he says he feels better after having undergone neoadjuvant chemotherapy with Xeloda and radiation. He says that his bleeding has improved significantly. He has good oral intake. He says that he feels well overall. [facility] Medical History Rectal adenocarcinoma Rectal bleeding Hyperlipidemia Cervicalgia GERD (gastroesophageal reflux disease) Anxiety ADD (attention deficit disorder) PTSD (post-traumatic stress disorder) Bleeding hemorrhoids Surgical History History of hemorrhoidectomy (~06/29/23) H/O vasectomy History of nasal surgery Family History Maternal Grandmother Colon cancer Social History Household Members: Spouse Patient Tobacco Use Status: Never used Tobacco service: Yes Current occupational status: employed and disabled Review of Systems Const Denies chills and Denies fever(s) Card Denies chest pain, Denies dyspnea and Denies dyspnea on exertion Resp Denies cough, Denies dyspnea and Denies dyspnea on exertion GI Denies hematochezia and Denies change in bowel habits Denies hematuria and Denies difficulty urinating Musc Denies back pain and Denies limited range of motion Neuro Denies focal weakness and Denies convulsions Psych Denies depression and Denies mood swings Physical Exam Vital Signs: Last Vital Signs Pulse 76 01/20/24 08:45 BP 126/90 H 01/20/24 08:45 BMI result Body Mass Index 29.4 Const General: no acute distress and well developed Resp Effort & Inspection: normal respiratory effort Cardio Rate: regular rate GI Palpation (GI): Soft to palpation, not firm and nontender Assessment & Plan Assessment & Plan (1) Rectal adenocarcinoma: Code(s): C20 - Malignant neoplasm of rectum Category: Medical Plan: He is doing quite well after having been started on Xeloda and radiation for adjuvant treatment. He says that his bleeding has improved significantly. He has good oral intake and seems to have had good bowel movements I will follow up on his referral to [facility] for definitive surgical resection which hopefully will include sphincter preservation. He seems to be doing well overall. He understands the plan well and can see him in the office within the next 2 months or so to see how he is doing and to make sure that he is being navigated with regards to his treatment. Coding Level of Care Code Est Pt Level 3 (06124) Diagnoses Rectal adenocarcinoma C20
[2024-01-20 08:45] VITALS: BP 126/90; PULSE 76; BMI 29.4
== END 2024-01-20 08:54 | disposition home or self-care (01) ==
PROVIDERS: Visit Provider Surgery
DX: C20 Malignant neoplasm of rectum (principal)
CPT/HCPCS: 99213

== ENCOUNTER → 2024-01-20 08:27 | Outpatient (BNVA) | payer OTHER, SELFPAY | PROVIDERS: Visit Provider Surgery | DX: C20 Malignant neoplasm of rectum (principal) | CPT/HCPCS: 99212 ==